=== PATIENT | female | born 2000 | race Caucasian/White ===

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

== ENCOUNTER 2023-10-21 15:28 | Inpatient (IN) ==
[2023-10-22] MEDS ORDERED: ACETAMINOPHEN 325 MG TAB PO PRN ×2 (08:47→17:02)
[2023-10-22] MEDS ORDERED: LIDOCAINE 1% LOCAL 20 ML VIAL INFIL PRN (08:47)
[2023-10-22 09:10] LABS: Hematocrit (blood only) 30.2 % (37.0-47.0); Hemoglobin 9.6 g/dl (12.0-16.0); Mean Corpuscular Hemoglobin 25.1 pg (25.0-34.0); Mean Corpuscular Hgb Conc 31.8 g/dL (32.0-36.0); Mean Corpuscular Volume 78.9 fL (80.0-100.0); Mean Platelet Volume 9.3 fL (9.4-12.4); Platelet Count 251 K/uL (130-400); RDW Coefficient of Variation 14.4 % (11.5-14.5); RDW Standard Deviation 40.9 fL (36.4-46.3); Red Blood Count 3.83 M/uL (4.20-5.40); White Blood Count 9.95 K/ul (4.8-10.8)
[2023-10-22] MEDS: CALCIUM CARBONATE 500 MG CHEWABLE TAB PO PRN (09:26)
[2023-10-22] MEDS: OXYTOCIN 30 UNITS/NSS 30 UNITS/500 ML BAG IV PRN ×2 (09:30→16:39)
--- NOTE | 2023-10-22 09:30 | History & Physical Report ---
Date of Service October 22, 2023 Assessment & Plan (1) Gestational diabetes mellitus (GDM) affecting : Plan: IUP at 39-4/7 weeks presents for induction of labor because of gestational diabetes diet-controlled. Pitocin induction begun per labor and delivery protocol. Epidural when requested. Anticipate vaginal . Will check BSG on admission. Admission and Anticipated Discharge Date Admission Date: October 22, 2023 History of Present Illness Primary Care Provider: Edis Thompson DO Patient is a 23-year-old 1 P0 female EDC of 10/25/2023 who presents for induction of labor because of diet-controlled gestational diabetes. Last growth scan showed estimated weight of 61 percentile and abdominal circumference 88th percentile. testing has been reassuring. GBS is negative. Allergies Allergy/AdvReac Type Severity Reaction Status Date / Time coconut Allergy Severe Throat Verified 10/21/23 09:23 swelling, rash, hives Home Medications Medication Instructions Recorded Confirmed Type prenat.vits,saul,qvp-atxd-tangp 1 tab PO DAILY #30 tabs 08/17/22 10/22/23 Rx epinephrine 0.3 mg/0.3 mL 0.3 mg (0.3 mL) IM Q4H PRN 12/28/22 10/22/23 Rx injection, auto-injector anaphylaxis #2 ea doxylamine 10 mg-pyridoxine (vit See Rx Instructions .Route 05/15/23 10/22/23 Rx B6) 10 mg tablet,delayed release .COMPLEX #10 tabs (Diclegis) acetone (urine) test (Ketone Urine #50 ea 08/30/23 10/21/23 Rx Test strips) blood sugar diagnostic (OneTouch #150 ea 08/30/23 10/21/23 Rx Verio test strips) blood-glucose meter (OneTouch #1 ea 08/30/23 10/21/23 Rx Verio Reflect Meter) lancets 33 gauge (OneTouch Delica #150 ea 08/30/23 10/21/23 Rx Plus Lancet) Patient History Medical History Migraine without aura Mononucleosis ebv titers positive in July 2020 for past infection Restricted diet Right shoulder pain Following orthopedics. Had right arthrography MRI w/o results Anxiety . Syncope and collapse Functional ovarian cysts Surgical History S/P wisdom tooth extraction H/O shoulder surgery Family History Brother Asthma Grandmother Breast cancer maternal great grandmother Other Diabetes No significant family history Denies family history of Ovarian cancer Prostate cancer Colorectal cancer Uterine cancer Social History Smoking Status: Never smoker Second Hand Exposure: No; Do You Dip or Chew Tobacco: No; Tobacco Cessation Education Requested by Patient: No Hx Alcohol Use: No Hx Substance Use: No Preferred Language: Malaysian Communication Ability: Effective Visual Impairment: No Limitations Hearing Ability: Normal Regional Program Manager Required: No Beliefs That Will Affect Care: None marital status: Single marital status details: Clark (24) [phone] Current Living Situation: Significant Other Current Living Situation Comment: with significant other current occupational status: employed current occupation: Caregiver Other Information That Helps Us Care for You: No Feels Safe at Home: Yes Safety Concerns: Feels Safe At This Time Childhood Exposure to Second-Hand Smoke: No Diet: regular caffeine: Yes Dental Care, Regularly: Yes Physical Activity Frequency: Daily Seatbelt Use: always Sunscreen Use: No Assistive Devices: None Review of Systems All systems reviewed & are unremarkable except as noted in HPI & below Physical Exam Constitutional: WD/WN, vitals as above Psychiatric: A+Ox3, euthymic affect Genitourinary: OB Exam Abdomen: + vertex, + estimated weight (8-9 pounds) and + irregular contractions Manual OB Exam: + cervical dilation 3 cm, + cervical effacement 70% and + station -2 OB Exam Monitor Tracing: + external FHT monitor used, + external uterine monitor used, + category I and + normal FHT variability Results & Data Vital Signs (Past 12 Hours) Vital Signs Temp Pulse Resp BP Pulse Ox 10/22/23 08:25 97.9 F 95 H 16 116/73 98 10/22/23 08:06 97.9 F 95 H 16 116/73 98 10/22/23 07:50 95 H 116/73 Code Status & VTE Plan VTE Prophylaxis Plan VTE Prophylaxis will be ordered: No Coding Level of Care Code None Diagnoses Gestational diabetes mellitus (GDM) affecting O24.419
[2023-10-22] MEDS: LACTATED RINGER'S 1,000 ML IV PRN (09:31)
--- NOTE | 2023-10-22 12:47 | Labor Progress Brief Note ---
Date of Service October 22, 2023 Subjective Reason For Note: Routine Evaluation contractions now Q3-5 minutes but mild- FHT Category 1 cervix 3-4/70/-2 AROM for clear fluid Assessment & Plan Admission and Anticipated Discharge Date Admission Date: October 22, 2023 Results & Data Vital Signs (Past 12 Hours) Vital Signs Temp Pulse Resp BP Pulse Ox 10/22/23 12:29 20 10/22/23 12:29 98.1 F 20 10/22/23 12:29 75 10/22/23 12:29 119/81 10/22/23 11:40 16 10/22/23 11:40 97.7 F 16 10/22/23 11:35 83 10/22/23 11:35 116/69 10/22/23 11:02 76 10/22/23 11:02 106/62 10/22/23 10:35 91 H 10/22/23 10:35 87/48 L 10/22/23 10:02 91 H 10/22/23 10:02 97/56 L 10/22/23 10:00 97.9 F 18 10/22/23 10:00 18 10/22/23 10:00 97.9 F 18 10/22/23 09:33 102 H 10/22/23 09:33 107/69 10/22/23 09:30 16 10/22/23 09:30 16 10/22/23 08:25 97.9 F 95 H 16 116/73 98 10/22/23 08:06 97.9 F 95 H 16 116/73 98 10/22/23 07:50 95 H 116/73 Coding Level of Care Code None
--- NOTE | 2023-10-22 13:22 | Anesthesiology Consultation ---
Date of Service October 22, 2023 Assessment & Plan (1) Encounter for pre-operative examination: Chart Review Chart Review: Acceptable Risk for Labor Epidural History Height/Weight Height: 5 ft 3 in Weight: 76.657 kg Allergies Allergy/AdvReac Type Severity Reaction Status Date / Time coconut Allergy Severe Throat Verified 10/21/23 09:23 swelling, rash, hives Medications Home Medications Medication Instructions Recorded Confirmed Last Taken prenat.vits,saul,[id number] 1 tab PO DAILY #30 tabs 08/17/22 10/22/23 10/21/23 epinephrine 0.3 mg/0.3 mL 0.3 mg (0.3 mL) IM Q4H PRN 12/28/22 10/22/23 Unknown injection, auto-injector anaphylaxis #2 ea doxylamine 10 mg-pyridoxine (vit See Rx Instructions .Route 05/15/23 10/22/23 10/21/23 B6) 10 mg tablet,delayed release .COMPLEX #10 tabs (Diclegis) acetone (urine) test (Ketone Urine #50 ea 08/30/23 10/21/23 Unknown Test strips) blood sugar diagnostic (OneTouch #150 ea 08/30/23 10/21/23 Unknown Verio test strips) blood-glucose meter (OneTouch #1 ea 08/30/23 10/21/23 Unknown Verio Reflect Meter) lancets 33 gauge (OneTouch Delica #150 ea 08/30/23 10/21/23 Unknown Plus Lancet) Active Medications Generic Name Dose Route Start Last Admin Trade Name Freq PRN Reason Stop Dose Admin Calcium Carbonate 500 mg 10/22/23 08:47 10/22/23 09:26 Calcium Carbonate 500 Mg Chewable Tab PO 11/21/23 08:46 500 mg Q6H PRN Administration Indigestion Oxytocin 30 units in 500 mls @ 10 mls/hr 10/22/23 08:47 10/22/23 11:30 Pitocin 30 Units/Nss IV 10/24/23 08:46 0.6 units/hr .Q24H PRN 10 mls/hr Labor Induction/Augmentation Titration Protocol 0.6 UNITS/HR Lactated Ringer's 1,000 mls @ 125 mls/hr 10/22/23 08:47 10/22/23 09:31 Lr IV 10/24/23 08:46 125 mls/hr .Q8H PRN Administration L&D Protocol Protocol Past Medical History Medical History Migraine without aura Mononucleosis ebv titers positive in July 2020 for past infection Anxiety . Past Family History Family History Brother Asthma Grandmother Breast cancer maternal great grandmother Other Diabetes No significant family history Denies family history of Ovarian cancer Prostate cancer Colorectal cancer Uterine cancer Past Surgical History Surgical History S/P wisdom tooth extraction H/O shoulder surgery Social History Smoking Status: Never smoker Do You Dip or Chew Tobacco: No Hx Alcohol Use: No Hx Substance Use: No substance use type: does not use Physical Exam Vital Signs Last Vital Signs Temp 36.7 C 10/22/23 12:29 Pulse 81 10/22/23 13:19 Resp 20 10/22/23 12:29 BP 114/66 10/22/23 13:19 Pulse Ox 98 10/22/23 08:25 Testing Laboratory Results 10/22/23 08:57 10/22/23 09:13 POC Glucose 107 H
[2023-10-22] MEDS ORDERED: ePHEDrine sulfate 50 MG/ML AMP IV PRN (14:04)
[2023-10-22] MEDS ORDERED: fentaNYL citrate PF 100 MCG/2 ML VIAL EPI PRN (14:04)
[2023-10-22] MEDS ORDERED: ROPIVACAINE 0.5% PF 5 MG/ML 20 ML VIAL EPI PRN (14:04)
[2023-10-22] MEDS ORDERED: BUPIVACAINE 0.25% PF 30 ML VIAL EPI PRN (14:04)
[2023-10-22] MEDS ORDERED: LIDOCAINE 2% MPF LOCAL 5 ML VIAL EPI PRN (14:04)
[2023-10-22] MEDS ORDERED: SODIUM CHLORIDE 0.9% PF INJ 10 ML VIAL EPI PRN (14:04)
[2023-10-22] MEDS ORDERED: NALBUPHINE HCL 5 MG in SYRINGE 0 ML IV PRN (14:04)
[2023-10-22] MEDS ORDERED: NALOXONE HCL 0.4 MG/1 ML VIAL/CARP IV PRN (14:04)
[2023-10-22] MEDS: fentANYL 2 MCG/ML BUPIVacaine 0.125%-NSS 100ML BAG EPI PRN (14:15)
[2023-10-22] MEDS: BUPIVACAINE 0.25% PF 30 ML VIAL ONE (14:20)
[2023-10-22] MEDS: SODIUM CHLORIDE 0.9% PF INJ 10 ML VIAL ONE (14:21)
[2023-10-22] MEDS: fentaNYL citrate PF 100 MCG/2 ML VIAL ONE (14:21)
[2023-10-22] MEDS: LIDOCAINE 2%/EPINEPHRINE 1:200,000 20 ML PF ONE (14:21)
[2023-10-22] MEDS: ePHEDrine sulfate 50 MG/ML AMP ONE (14:22)
[2023-10-22] MEDS: BUPIVACAINE 0.25% PF 30 ML VIAL EPI STA (14:22)
[2023-10-22] MEDS: fentaNYL citrate PF 100 MCG/2 ML VIAL EPI STA (14:23)
[2023-10-22] MEDS: LIDOCAINE 2%/EPINEPHRINE 1:200,000 20 ML PF EPI STA (14:23)
[2023-10-22] MEDS: SODIUM CHLORIDE 0.9% PF INJ 10 ML VIAL EPI STA (14:23)
[2023-10-22] MEDS: fentANYL 2 MCG/ML BUPIVacaine 0.125%-NSS 100ML BAG ONE (14:24)
[2023-10-22] MEDS: ONDANSETRON INJ 2 MG/ML 2 ML VIAL IV PRN (14:46)
[2023-10-22] MEDS: miSOPROStoL 200 MCG TAB ONE (16:14)
[2023-10-22] MEDS: METHYLERGONOVINE MALEATE 0.2 MG/ML AMP ONE (16:18)
--- NOTE | 2023-10-22 16:30 | Delivery Summary ---
Vaginal Delivery Summary Date of Service October 22, 2023 Vaginal Delivery Summary DIAGNOSES: 1. Brewer intrauterine at 39w4d gestation. 2. Induction of Labor. 3. Group B Streptococcus Neg. PROCEDURE: Spontaneous vaginal delivery and repair of first degree vaginal laceration. SURGEON: Saloni Ramires MD. CROWN WHEEL ASSEMBLER: None. Quantitative BLOOD LOSS: 423 mL. COMPLICATIONS: None. PLACENTA: Spontaneous and intact with a 3-vessel cord. DISPOSITION: Stable to labor and delivery. DESCRIPTION: The patient pushed well and brought the head to in OA position. The infant's head was allowed to deliver with contraction force and no further active pushing, with the perineum protected during this time. There was no nuchal cord. The RIGHT shoulder was anterior. The shoulders and body delivered without any difficulty, however as the mother made a pushing effort to deliver the anterior shoulder, an audible pop was heard. No excessive traction was applied on the head or neck during this process. The infant was placed on the maternal abdomen. It was vigorous and moving all extremities including the R arm, was seen to fully close and open the R hand, and was making respiratory efforts. The cord was doubly clamped by the MD and then cut by the FOB. The pediatric nursing team was made aware immediately of the pop during R shoulder delivery, and the patient and family support persons were informed and given the opportunity to ask questions. The placenta delivered spontaneously and was noted to be intact and with a 3VC. The cervix, vagina and perineum were examined and were found to have a small divot in the L vaginal wall that was hemostatic after a [id number] vicryl was applied. The fundus was firm, however lochia remained at a steady trickle, so 1000mcg cytotec were given rectally. When trickle persisted, a dose of methergine was also given IM. Shortly therafter, bleeding ceased. QBL was 423cc after all events above. [facility] Vaginal Delivery Charge Vaginal Delivery Codes: 67886 global code for the antepartum, delivery, and post-
[2023-10-22] MEDS ORDERED: OXYTOCIN 30 UNITS/NSS 30 UNITS/500 ML BAG IV PRN (17:02)
[2023-10-22] MEDS ORDERED: oxyCODONE/ACETAMINOPHEN 5mg/325mg TAB PO PRN (17:02)
[2023-10-22] MEDS ORDERED: HYDROCORTISONE ACETATE 25 MG SUPP PR PRN (17:02)
[2023-10-22] MEDS ORDERED: bisacodyL 10 MG SUPP PR PRN (17:02)
[2023-10-22] MEDS: DIPHTHER/TETAN/PERTUS Vaccine (Tdap, Adol/Adult) 0.5mL IM ONE (17:29)
--- NOTE | 2023-10-22 17:41 | Anesthesia Procedure Note ---
Date of Service October 22, 2023 Anesthesia Post Epidural Note Vital Signs Vital Signs: Temp Pulse Resp BP Pulse Ox 37.1 C 93 H 22 106/67 99 10/22/23 15:00 10/22/23 17:26 10/22/23 16:00 10/22/23 17:26 10/22/23 16:23 Notes Mental Status: alert / awake / arousable and participated in evaluation Nausea / Vomiting: adequately controlled Pain: adequately controlled Airway Patency, RR, SpO2: stable & adequate BP & HR: stable & adequate Hydration State: stable & adequate Neuraxial Anesthesia: was administered and sensory block is resolving Anesthetic Complications: no major complications apparent Epidural: Removed without complications and With tip intact
[2023-10-22] MEDS: BENZOCAINE 20% SPRY 85 APPLN/85 GM CAN EXT PRN (19:19)
[2023-10-22] MEDS: DOCUSATE SODIUM 100 MG CAP PO SCH (21:00)
--- NOTE | 2023-10-23 05:22 | Obstetrical Progress Note ---
Date of Service October 23, 2023 Assessment & Plan (1) care following vaginal delivery: (2) Gestational diabetes mellitus (GDM) affecting : Plan Feels overall well today. Eating well, voiding well, ambulating well. Pain well controlled with prn only medications. Routine care; OOB, ambulation, diet progression as tolerated. Anticipate discharge 24-48 hours after , today or tomorrow. After discharge will have 6 week follow-up with Dr. Ramirse. Subjective Pt is a 23 y/o female who is PPD#1 following at 39 weeks. Today, pt states she is feeling well overall. She states she has eaten a little since the delivery and no nausea or vomiting. She has been up walking around since the delivery and did feel a little whoozy at first but has been okay otherwise. No issues with voiding. She has been which is going okay although she notes baby has been pretty sleepy so they won't feed for very long. Cramping and bleeding is mild. Constitutional: no fever, no chills or no sweats Respiratory: no dyspnea Cardiovascular: no chest pain or no palpitations Breast: no breast pain Genitourinary (female): no dysuria Neurologic: no headache(s) no changes in vision, no headaches Physical Exam General: Alert, oriented. No acute distress. Cardiac: Regular rate and rhythm, no murmurs, rubs, or gallops. Respiratory: Clear to auscultation bilaterally, no wheezes/rales/rhonchi. No increased work of breathing. Symmetrical chest rise. No respiratory distress. Abdomen: Soft, nontender, nondistended. Bowel sounds present. Uterus: Uterine fundus firm, palpable below the umbilicus. Lower extremities: No lower extremity edema or swelling. No deep calf pain. Results & Data Vital Signs (Past 12 Hours) Vital Signs Temp Pulse Pulse Resp BP BP Pulse Ox 10/23/23 03:21 37 C 85 16 102/70 98 10/22/23 23:00 37.3 C 84 16 103/96 98 10/22/23 18:38 37.2 C 18 10/22/23 18:26 91 H 10/22/23 18:26 114/66 10/22/23 18:12 85 10/22/23 18:12 120/67 10/22/23 17:56 81 10/22/23 17:56 110/65 10/22/23 17:41 83 10/22/23 17:41 113/65 10/22/23 17:26 93 H 10/22/23 17:26 106/67 O2 Del Method 10/23/23 03:21 Room Air 10/22/23 23:00 Room Air 10/22/23 18:38 10/22/23 18:26 10/22/23 18:26 10/22/23 18:12 10/22/23 18:12 10/22/23 17:56 10/22/23 17:56 10/22/23 17:41 10/22/23 17:41 10/22/23 17:26 10/22/23 17:26 Resident Activity Tracking Resident Involvement: Resident Care Provided Care Provided: OB Delivery
[2023-10-23 07:25] LABS: Hematocrit (blood only) 27.8 % (37.0-47.0); Hemoglobin 8.6 g/dl (12.0-16.0); Mean Corpuscular Hemoglobin 24.9 pg (25.0-34.0); Mean Corpuscular Hgb Conc 30.9 g/dL (32.0-36.0); Mean Corpuscular Volume 80.3 fL (80.0-100.0); Mean Platelet Volume 9.9 fL (9.4-12.4); Platelet Count 249 K/uL (130-400); RDW Coefficient of Variation 14.5 % (11.5-14.5); RDW Standard Deviation 41.9 fL (36.4-46.3); Red Blood Count 3.46 M/uL (4.20-5.40); White Blood Count 17.28 K/ul (4.8-10.8)
[2023-10-23] MEDS: PRENATAL VITAMIN 1 TAB PO SCH (10:57)
[2023-10-23] MEDS: IBUPROFEN 600 MG TAB PO PRN (13:08)
[2023-10-23] MEDS: bisacodyL 5 MG TABEC PO SCH (20:53)
[2023-10-24 06:37] LABS: Hematocrit (blood only) 22.4 % (37.0-47.0)
--- NOTE | 2023-10-24 06:55 | Obstetrical Progress Note ---
Date of Service October 24, 2023 Assessment & Plan (1) care following vaginal delivery: Plan satisfactory exam Hgb 7.0 today will take OTC iron tablet plus PNV for 6 weeks D/C to home follow up in 6 weeks or PRN Subjective Ambulation: ambulating normally Voiding: no voiding problems Passing Gas:: Yes Diet Tolerance:: regular diet Lochia:: Small Feeding Type:: breast feeding no lightheadedness or dizziness when ambulating working on issues Review of Systems All systems reviewed & are unremarkable except as noted in HPI & below Physical Exam Constitutional WD/WN, vitals as above Psychiatric A+Ox3, euthymic affect Genitourinary OB Exam Abdomen: + fundal height Fundus: + firm and + relation to umbilicus (at U) Results & Data Vital Signs (Past 12 Hours) Vital Signs Temp Pulse Resp BP Pulse Ox O2 Del Method 10/23/23 23:04 97.9 F 85 16 100/66 98 Room Air 10/23/23 20:00 98.2 F 90 16 98/66 L 99 Room Air
== END 2023-10-24 10:59 | disposition home or self-care (01) | DRG 807 ==
LOC: 4S1 10-22 07:41 → 4E2 10-22 18:48